=== PATIENT | female | born 1960 | race Caucasian/White ===

== ENCOUNTER 2017-03-13 06:45 | Day surgery (SDC) | payer BC ==
[~2017-03-13] VITALS: Ht 154.9 cm; Wt 82.1 kg
[~2017-03-13 06:45] MED LIST: BUPROPION XL300 MG PO; BUSPIRONE HCL10 MG PO; CLONIDINE HCL0.1 MG PO; DULERA 100 MCG/13 GM INH; GABAPENTIN300 MG PO; IMITREX50 MG PO; LISINOPRIL-HCT1 EAC1 PO; LORAZEPAM0.5 MG PO; METOPROLOL SUC100 MG PO; OMEPRAZOLE20 MG PO; RANITIDINE HCL150 M1 PO; SIMVASTATIN20 MG PO; VENTOLIN HFA18 GM INH
--- NOTE | 2017-03-13 08:16 | NUR ---
PT IS ALERT, ORIENTED AND SUPPORTED BY HER PARTNER ROSEMARIE. SHE HAS A WRY SENSE OF HUMOR, SEEMED TO HELP TAKE THE EDGE OFF THE DAY'S EVENTS FOR HER. NO QUESTIONS, THE COUPLE LIVE IN [place] AN REGULATORY AUDITOR. PT REQUESTED PRAYER, WILL FOLLOW NEEDED
--- NOTE | 2017-03-13 08:48 | NUR ---
03[facility]13/17 0848 [facility] AT 5L RUNNING THROUGH THE OPA IN THE PT'S MOUTH ON ARRIVAL TO PACU.
--- NOTE | 2017-03-13 11:03 | OR ---
[facility] [address], [place] [address] Signed DATE OF SERVICE: 03/13/2017 PREOPERATIVE DIAGNOSES: Epigastric abdominal pain. Heartburn. Esophageal dysphagia. Maternal grandmother with gastric cancer. Diarrhea. POSTOPERATIVE DIAGNOSIS: Mild diffuse gastritis. PROCEDURE PERFORMED: Esophagogastroduodenoscopy with CLOtest and biopsies of the duodenal antrum. ESTIMATED BLOOD LOSS: None. INDICATIONS: Elina is a 57-year-old female who was asked to see me for upper endoscopy. She has been having trouble with epigastric abdominal pain and heartburn. She also describes dysphagia. She has trouble swallowing the food in the upper esophagus and then she said all the way down towards the lower esophageal sphincter. When she drinks fluids, she said it just comes flying back up. Also, her maternal grandmother had gastric cancer and Elina has had chronic diarrhea. She went to see her director of field coordination, Dr. Ordonez at least 7 years ago. She had upper and lower endoscopy. She and her both think that was negative. In the office, I gave her a pamphlet on upper endoscopy. We discussed the nature of the test along with its risks including but not limited to gas, bloating, crampy abdominal pain, bleeding, perforation requiring surgery, and missed diagnosis. Also, she has a long list of medications including bupropion, buspirone, clonidine, gabapentin, lorazepam, marijuana, and others that she uses for her panic disorder, anxiety disorder, and obsessive-compulsive disorder. Based on this, we would never get her sleep with our standard [place] and kayleeany l. We, therefore, asked an anesthesia provider to help us with increased monitoring and sedation with propofol. She had expressed understanding and wished to proceed. DESCRIPTION OF PROCEDURE: Elina was taken into our endoscopy suite and placed in the supine semi-recumbent position. She was given propofol per our nurse strategic business development. A bite block was utilized for the test. The adult gastroscope was introduced and advanced under direct visualization of the camera out into the third portion of the duodenum under direct visualization of camera without difficulty. The duodenum, pyloric channel looked unremarkable. We took a biopsy of the duodenum for pathologic review because of the Electronically Signed By: SUDARSHAN ARREDONDO MD 03/13/17 1103 PATIENT NAME: ELINA KUMAR OPERATIVE REPORT DATE OF : 60 PHYSICIAN: SUDARSHAN ARREDONDO MD REPORT #: [id number] REPORT IS CONFIDENTIAL AND NOT TO BE RELEASED WITHOUT AUTHORIZATION [facility] [address], [place] [address] Signed history of diarrhea. The stomach showed very mild diffuse erythematous changes. We went ahead and took a biopsy of the antrum for CLOtest as well as pathologic review. Upon retroflexion of the scope, we could not see a hiatal hernia. In fact, the valve appears to be quite good. No gastric or esophageal varices, no ulcerations. The scope h ad been withdrawn to the GE junction, which was compliant without stricture. She has minimal disruption to the Z-line. There was no Hdz's mucosa, no distal esophagitis. The middle and upper esophagus were unremarkable. After this, the gas was suctioned out and the gastroscope removed. Elina tolerated the procedure quite well. RECOMMENDATIONS: I will see Elina back in my office in 7-14 days to review her results. Sudarshan Arredondo MD AB/Modl /[id number] cc: KEDAR Masters Electronically Signed By: SUDARSHAN ARREDONDO MD 03/13/17 1103 PATIENT NAME: ELINA KUMAR OPERATIVE REPORT DATE OF : 60 PHYSICIAN: SUDARSHAN ARREDONDO MD REPORT #: [id number] REPORT IS CONFIDENTIAL AND NOT TO BE RELEASED WITHOUT AUTHORIZATION
== END 2017-03-13 09:27 | disposition home or self-care (01) ==
LOC: OPS 06:45 → DS 06:45 → OPS 08:00
PROVIDERS: Colon & Rectal Surgery
PROC: 0DB68ZX Excision of Stomach, Via Natural or Artificial Opening Endoscopic, Diagnostic (ICD-10-PCS; 2017-03-13)
PROC: 0DB98ZX Excision of Duodenum, Via Natural or Artificial Opening Endoscopic, Diagnostic (ICD-10-PCS; principal; 2017-03-13 08:00)
DX: K29.50 Unspecified chronic gastritis without bleeding (principal); I10 Essential (primary) hypertension; G47.33 Obstructive sleep apnea (adult) (pediatric); K21.9 Gastro-esophageal reflux disease without esophagitis; E78.5 Hyperlipidemia, unspecified; E66.9 Obesity, unspecified; G43.909 Migraine, unspecified, not intractable, without status migrainosus; G89.29 Other chronic pain; F32.9 Major depressive disorder, single episode, unspecified; F41.9 Anxiety disorder, unspecified; Z90.49 Acquired absence of other specified parts of digestive tract; Z90.711 Acquired absence of uterus with remaining cervical stump; Z98.890 Other specified postprocedural states; Z87.891 Personal history of nicotine dependence; Z91.040 Latex allergy status; Z79.02 Long term (current) use of antithrombotics/antiplatelets; Z79.899 Other long term (current) drug therapy; Z88.5 Allergy status to narcotic agent
CPT/HCPCS: 00740; 86677; J2250; J3010; J7120